=== PATIENT | female | born 1960 | race Native Hawaiian/Other Pacific Islander ===

== ENCOUNTER 2017-12-04 03:59 | Emergency (ER) | payer OTHER ==
[~2017-12-04] VITALS: Ht 167.6 cm; Wt 77.5 kg
[2017-12-04] MEDS ORDERED: DSS100 PO (04:12)
[2017-12-04] MEDS ORDERED: CETI-290 PO (04:12)
[2017-12-04] MEDS ORDERED: GABA-531 PO (04:12)
[2017-12-04] MEDS ORDERED: KETOROLAC TROMETHAMINE 60 MG/2 ML VIAL IM ONE (04:30)
[2017-12-04] MEDS ORDERED: CYCLOBENZAPRINE HCL 10 MG TABLET PO ONE (05:00)
[2017-12-04 05:25] VITALS: BP 130/70
== END 2017-12-04 05:50 | disposition home or self-care (01) ==
LOC: EMS 03:59
DX: M54.5 Low back pain (principal); G89.29 Other chronic pain; F17.210 Nicotine dependence, cigarettes, uncomplicated
CPT/HCPCS: 81002; 96372; 99283; J1885

== ENCOUNTER 2018-12-06 10:25 | Emergency (ER) | payer OTHER ==
[~2018-12-06] VITALS: Ht 167.6 cm; Wt 106.8 kg
[~2018-12-06 10:25] MED LIST: CETI10TA59 PO; DSS100 PO; GABA-531 PO
[2018-12-06] MEDS ORDERED: ALBU8.5H8 IH (10:38)
[2018-12-06] MEDS ORDERED: FLUT44HFA IH (10:38)
[2018-12-06 10:59] VITALS: BP 143/80
== END 2018-12-06 12:26 | disposition home or self-care (01) ==
LOC: EMS 10:26
DX: J06.9 Acute upper respiratory infection, unspecified (principal); R03.0 Elevated blood-pressure reading, without diagnosis of hypertension; J40 Bronchitis, not specified as acute or chronic; F17.210 Nicotine dependence, cigarettes, uncomplicated

== ENCOUNTER 2020-04-04 15:56 | Emergency (ER) | payer OTHER ==
[~2020-04-04] VITALS: Ht 154.9 cm; Wt 111.4 kg
[~2020-04-04 15:56] MED LIST changes: +ALBU8.5H8 IH; +CETI-450 PO; -CETI10TA59 PO; -DSS100 PO; +FLUT44HFA IH; -GABA-531 PO
[2020-04-04] MEDS ORDERED: KETOROLAC TROMETHAMINE 30 MG/ML VIAL IVP ONE (17:15)
[2020-04-04 17:31] LABS: ANION GAP 8 mmol/L (8-16); BASOPHILS % (AUTO) 0.8 % (0.0-2.0); CALCIUM, TOTAL 9.8 mg/dL (8.8-10.5); CARBON DIOXIDE 27 mmol/L (22-29); CHLORIDE 108 mmol/L (98-107); CREATININE 0.73 mg/dL (0.60-1.30); EOSINOPHILS % (AUTO) 4.1 % (1.0-6.0); GLOMERULAR FILTR. RATE CALC > 60 mL/min (>60); GLUCOSE,RANDOM 97 mg/dL (70-110); HEMATOCRIT 41.5 % (36-46); HEMOGLOBIN 13.8 g/dL (12.0-16.0); LYMPHOCYTES # (AUTO) 2.4 K/uL (1.0-4.8); LYMPHOCYTES % (AUTO) 31.4 % (22.0-44.0); MEAN CORPUSCULAR HEMOGLOBIN 31.4 pg (26.0-34.0); MEAN CORPUSCULAR HGB CONC 33.4 G/dL (31.0-37.0); MEAN CORPUSCULAR VOLUME 94 fL (80-100); MONOCYTES # (AUTO) 0.6 K/uL (0.1-1.0); MONOCYTES % (AUTO) 8.4 % (2.0-9.0); NEUTROPHILS # (AUTO) 4.2 K/uL (1.8-7.7); NEUTROPHILS % (AUTO) 55.3 % (40.0-70.0); PLATELET COUNT (AUTO) 244 K/uL (150-450); POTASSIUM 3.9 mmol/L (3.5-5.1); RED BLOOD CELL COUNT(AUTO) 4.41 MIL/uL (4.00-5.20); RED CELL DISTRIBUTION WIDTH 13.7 % (11.5-14.5); SODIUM SERUM 143 mmol/L (136-145); UREA NITROGEN, BLOOD 12 mg/dL (7-18)
[2020-04-04 17:37] LABS: ALANINE AMINOTRANSFERASE 23 U/L (12-78); ALBUMIN 3.7 g/dL (3.4-5.0); ALKALINE PHOSPHATASE 80 U/L (46-116); ASPARTATE AMINOTRANSFERASE 18 U/L (15-37); BILIRUBIN,TOTAL 0.2 mg/dL (0.1-1.0); LIPASE 135 U/L (73-393); TOTAL PROTEIN, SERUM 7.9 g/dL (6.4-8.2)
[2020-04-04 17:51] VITALS: BP 136/80
== END 2020-04-04 17:58 | disposition home or self-care (01) ==
LOC: EMS 15:56
DX: K80.20 Calculus of gallbladder without cholecystitis without obstruction (principal); F17.210 Nicotine dependence, cigarettes, uncomplicated; G89.29 Other chronic pain
CPT/HCPCS: 36415; 76705; 80053; 83690; 85025; 96374; 99284; J1885